=== PATIENT | female | born 1970 | race Two or more races ===

== ENCOUNTER 2020-10-04 09:57 | Emergency (ER) | payer OTHER ==
[~2020-10-04] VITALS: Ht 154.9 cm; Wt 56.2 kg
[~2020-10-04 09:57] MED LIST: CLARITIN10 M1 PO; PHENABID DM TA1 EACH PO
[2020-10-04] MEDS ORDERED: IVERMECTIN3 MG PO (12:49)
== END 2020-10-04 13:30 | disposition home or self-care (01) ==
LOC: ER 09:57
DX: U07.1 COVID-19 (principal); B34.9 Viral infection, unspecified

== ENCOUNTER 2021-10-23 10:59 | Emergency (ER) | payer OTHER ==
[~2021-10-23] VITALS: Ht 154.9 cm; Wt 52.2 kg
[~2021-10-23 10:59] MED LIST changes: +IVERMECTIN3 MG PO
== END 2021-10-23 13:37 | disposition home or self-care (01) ==
LOC: ER 10:59
DX: U07.1 COVID-19 (principal); J98.8 Other specified respiratory disorders